=== PATIENT | male | born 1965 | race Caucasian/White ===

== ENCOUNTER 2017-01-11 09:35 | Emergency (ER) | payer MEDICAID, OTHER ==
[~2017-01-11] VITALS: Ht 170.2 cm; Wt 87.5 kg
[2017-01-11 09:45] VITALS: Ht 170.2 cm; Wt 87.5 kg
[2017-01-11 10:54] LABS: ADD SCAN DIFF NO
[2017-01-11 11:00] LABS: BASOPHILS % 0.8 % (0.0-2.0); EOSINOPHILS # 0.1 10^3/ul (0.0-0.5); EOSINOPHILS % 1.6 % (0.0-7.0); HEMATOCRIT 45.6 % (42.0-52.0); HEMOGLOBIN 15.2 g/dl (14.0-18.0); LYMPHOCYTES # 1.3 10^3/ul (0.8-2.9); LYMPHOCYTES % 34.7 % (15.0-51.0); MEAN CORPUSCULAR HEMOGLOBIN 31.6 pg (29.0-33.0); MEAN CORPUSCULAR HGB CONC 33.3 g/dl (32.0-37.0); MEAN CORPUSCULAR VOLUME 94.8 fl (82.0-101.0); MONOCYTE # 0.3 10^3/ul (0.3-0.9); MONOCYTES % 8.7 % (0.0-11.0); NEUTROPHILS % 53.9 % (39.0-77.0); PLATELET COUNT 234 10^3/UL (140-415); RED BLOOD COUNT 4.81 10^6/ul (4.70-6.10); RED CELL DISTRIBUTION WIDTH 13.1 % (11.5-14.5); WHITE BLOOD COUNT 3.8 10^3/ul (4.8-10.8)
--- NOTE | 2017-01-11 11:05 | RADRPT ---
PROCEDURE: US Abdomen (right upper quadrant). CLINICAL INDICATION: Abdominal pain. TECHNIQUE: Multiple real-time longitudinal and transverse images of the right upper quadrant of th e abdomen were acquired utilizing a curved array transducer. Images were reviewed on a high-resoluti on PACS workstation. COMPARISON: None FINDINGS: The liver is size and echotexture without focal mass or intrahepatic biliary dilatation. There is n ormal hepatopedal flow within the main portal vein. The gallbladder is gallbladder demonstrates mul tiple, echogenic shadowing calculi without wall thickening. The common bile duct measures 4.7 mm in maximal dimension. The visualized portions of the pancreas are unremarkable with obscuration of the tail of the pancreas. No free fluid is identified. The right kidney measures 10.4 cm in length. There is normal echogenicity within the right kidney. There is no perinephric fluid collection. No hydronephrosis, mass, or calculus is seen. IMPRESSION: 1. Cholelithiasis without evidence of gallbladder wall thickening or biliary tree dilatation. RPTAT: [facility] Physician Nidia Date Time Electronically viewed and signed by Physician Nidia on 01/11/2017 11:04 SERVANDO/
[2017-01-11 11:23] LABS: ALBUMIN 4.4 g/dl (3.3-4.9); ALBUMIN/GLOBULIN RATIO 1.29; BILIRUBIN,INDIRECT 0.7 mg/dl (0-1.1); BILIRUBIN,TOTAL 0.7 mg/dl (0.2-1.3); CALCIUM 9.5 mg/dl (8.4-10.2); CREATININE 0.82 mg/dl (0.61-1.24); POTASSIUM 4.5 mmol/L (3.5-5.1); TOTAL PROTEIN 7.8 g/dl (6.1-8.1)
[2017-01-11] MEDS ORDERED: AZIT250T94 PO (11:37)
[2017-01-11] MEDS ORDERED: ACET500C5 PO (11:37)
--- NOTE | 2017-01-11 11:43 | ERD ---
ER Documentation Chief Complaint Date/Time DATE: 01/11/17 TIME: 11:[address] X6 WEEKS GETTING WORSE; AND EPIGASTRIC PAIN X2 MONTHS. HX GASTRITIS HPI This 51-year-old male presents with multiple complaints. He states that his sore throat over the last 6 weeks which is getting worse. He has a history of gastritis and over the last few days started Pepcid. He is requesting antibiotics for sore throat. He denies fevers or vomiting. He has a history of gallstones but his pain appears to be primarily epigastric. ROS All systems reviewed and are negative except as per history of present illness. Medications Home Meds Active Scripts Acetaminophen* (Tylophen*) 500 Mg Capsule, 1 CAP PO Q6H Y for PAIN AND OR ELEVATED TEMP, #20 CAP Prov:MARCELA BANUELOS MD 01/11/17 Azithromycin* (Zithromax*) 250 Mg Tablet, 250 MG PO .ZPACK DIRECTED, #6 TAB TAKE 500 MG (2 TABS) THE FIRST DAY THEN 250 MG (1 TAB) DAYS 2-5 Prov:MARCELA BANUELOS MD 01/11/17 Allergies Allergies: Coded Allergies: Penicillins (Verified Allergy, Unknown, 01/11/17) omeprazole (Verified Allergy, Unknown, 01/11/17) PMhx/Soc Medical and Surgical Hx: pt denies Medical Hx History of Surgery: Yes (appendix) Hx Miscellaneous Medical Probl: Yes (gastritis) Hx Alcohol Use: Yes (socially) Hx Substance Use: No Hx Tobacco Use: No Smoking Status: Never smoker Physical Exam Vitals Vital Signs Date Time Temp Pulse Resp B/P Pulse Ox O2 Delivery O2 Flow Rate FiO2 01/11/17 09:45 98.7 78 16 125/72 99 Physical Exam Const: [] Alert, [id number]. Head: Atraumatic Eyes: Normal Conjunctiva ENT: Normal External Ears, Nose and Mouth. Cobblestoning in the posterior oropharynx with tonsils without erythema or exudate. Neck: Full range of motion..~ No meningismus. Resp: Clear to auscultation bilaterally Cardio: Regular rate and rhythm, no murmurs Abd: Soft, minimal epigastric tenderness without tenderness at McBurney's point and no Douglas sign. , non distended. Normal bowel sounds Skin: No petechiae or rashes Back: No midline or flank tenderness Ext: No cyanosis, or edema Neur: Awake and alert Psych: Normal Mood and Affect Result Diagram: 01/11/17 1045 01/11/17 1045 Results 24 hrs Laboratory Tests Test 01/11/17 10:45 White Blood Count 3.810^3/ul Red Blood Count 4.8110^6/ul Hemoglobin 15.2g/dl Hematocrit 45.6% Mean Corpuscular Volume 94.8fl Mean Corpuscular Hemoglobin 31.6pg Mean Corpuscular Hemoglobin Concent 33.3g/dl Red Cell Distribution Width 13.1% Platelet Count 14617^3/UL Mean Platelet Volume 10.0fl Neutrophils % 53.9% Lymphocytes % 34.7% Monocytes % 8.7% Eosinophils % 1.6% Basophils % 0.8% Nucleated Red Blood Cells % 0.0/100WBC Neutrophils # 2.010^3/ul Lymphocytes # 1.310^3/ul Monocytes # 0.310^3/ul Eosinophils # 0.110^3/ul Basophils # 0.010^3/ul Nucleated Red Blood Cells # 0.010^3/ul Sodium Level 138mmol/L Potassium Level 4.5mmol/L Chloride Level 103mmol/L Carbon Dioxide Level 27mmol/L Anion Gap 13 Blood Urea Nitrogen 17mg/dl Creatinine 0.82mg/dl Glucose Level 101mg/dl Calcium Level 9.5mg/dl Total Bilirubin 0.7mg/dl Direct Bilirubin 0.00mg/dl Indirect Bilirubin 0.7mg/dl Aspartate Amino Transf (AST/SGOT) 38IU/L Alanine Aminotransferase (ALT/SGPT) 57IU/L Alkaline Phosphatase 55IU/L Total Protein 7.8g/dl Albumin 4.4g/dl Globulin 3.40g/dl Albumin/Globulin Ratio 1.29 Lipase 33U/L Procedures/MDM CBC and CMP and lipase are normal. Right upper quadrant ultrasound shows gallstones without evidence of obstruction or cholecystitis. Patient has epigastric abdominal pain and sore throat worsening over last week's weeks. Patient was counseled that I believe this sore throat is likely a progression of his GERD.. He apparently has an allergy to omeprazole but should continue Pepcid and diet modification. Patient is insisting on antibiotics and will ultimately be provided with prescription although again counseled the sore throat likely infectious but due to his GERD. He should return for fevers, vomiting, new worsening symptoms of the yang he is referred to his primary doctor for GI evaluation for persistent symptoms despite treatment and general surgery for evaluation of gallstones. The patient was stable with no new complaints during the ER course. Clinically, there is no current evidence to suggest meningitis, sepsis, acute abdomen, pneumonia, acute coronary syndrome, pulmonary embolism, or any other emergent condition appearing to require further evaluation or hospitalization. The patient should certainly return for any new or worsening symptoms per the aftercare instructions. They should otherwise follow-up with her primary care doctor for reevaluation this week. Departure Diagnosis: Primary Impression: Gallstones Additional Impression: Multiple complaints Condition: Stable Patient Instructions: Self-Care for Sore Throats, Gallstones, Gerd (Adult) Referrals: [facility] () Janet se bhat hecho un examen mdico de control que le indica que no est en geovanna condicin que requiera tratamiento urgente en el Departamento de Emergencia. Un estudio ms profundo y el tratamiento de coronel condicin pueden esperar sin ningn riesgo hasta que usted sea atendida/o en el consultorio de coronel mdico o geovanna cl nadia. Es responsabilidad suya arreglar geovanna arturo para el seguimiento del williams. MANEJO DE CONDICIONES NO URGENTES EN EL FUTURO 1) Si usted tiene un mdico de atencin primaria: cassidy debera llamar a coronel mdico de atencin primaria antes de venir al departamento de emergencia. Despus de las horas de consultorio, coronel doctor o coronel asociado/a est disponible por telfono. El mdico o enfermero de acacia en el servicio telefnico puede asesorarle por lencho medio para atender el problema, o williams contrario se puede programar geovanna arturo. 2) Si usted no tiene un mdico de atencin primaria: Llame al mdico o clnica de referencia que aparece abajo leona las horas de consultorio para hacer geovanna arturo para que le vean. CLINICAS: [facility] [phone] [facility] [phone] [facility] [phone] [facility] [phone] [place] [phone] [id number] [facility] [phone] [address] Additional Instructions: JENNI NORMAL. TIENE PIEDRAS EN VESICULA. RECOMIENDO UN CIRUJANO PARA MAS EVALUACON. RECOMIENDO ESPECIALISTA DE ESTOMAGO PARA MAS SIMPTOMAS. VAMOA A TRATAR PARA INFECCION EN [place] NO CREO ES INFECTION. MARCELA BANUELOS MD Jan 11, 2017 11:43
== END 2017-01-11 12:13 | disposition home or self-care (01) ==
LOC: FTE 09:35
DX: K80.20 Calculus of gallbladder without cholecystitis without obstruction (principal); J02.9 Acute pharyngitis, unspecified
CPT/HCPCS: 36415; 76705; 80053; 83690; 85025; Z7502

== ENCOUNTER 2017-09-26 08:46 | Emergency (ER) | payer SELFPAY ==
[~2017-09-26] VITALS: Ht 167.6 cm; Wt 85.6 kg
[~2017-09-26 08:46] MED LIST: ACET500C5 PO; AZIT250T94 PO
[2017-09-26 08:52] VITALS: Ht 167.6 cm; Wt 85.6 kg
[2017-09-26] MEDS ORDERED: ONDANSETRON 4 MG INJ IV STA (09:16)
[2017-09-26] MEDS ORDERED: LIDOCAINE/MYLANTA 40 ML BTL PO STA (09:16)
[2017-09-26] MEDS ORDERED: morphine 4 MG/ML VIAL IV STA (09:16)
[2017-09-26] MEDS ORDERED: FAMOTIDINE 20 MG INJ IV STA (09:16)
--- NOTE | 2017-09-26 09:24 | ERD ---
ER Documentation Chief Complaint Chief Complaint AP HX OF GASTRITIS HPI This 52-year-old male with a history of gastritis and reflux who states she is having some epigastric left upper quadrant pain onset the past 2 months. He states that it got worse last night and this morning complains of burning pain in the epigastric left upper quadrant region with some heartburn sensation with a foul taste in his mouth. He says he had the same symptoms for several months but is seems to be worse today. No chest pain or shortness of breath no fever no diarrhea no vomiting ROS All systems reviewed and are negative except as per history of present illness. Medications Home Meds Active Scripts Lidocaine (Lidocaine Viscous) 100 Ml Soln, 15 ML MM BEFORE MEALS, #200 Prov:BARBARA DIXON DO 09/26/17 Dicyclomine Hcl* (Bentyl*) 10 Mg Capsule, 20 MG PO QID, #30 CAP Prov:BARBARA DIXON DO 09/26/17 Hydrocodone/Acetaminophen ([place] 10-325 Tablet) 1 Each Tablet, 1 TAB PO Q6H Y for PAIN, #20 TAB Prov:BARBRAA DIXON DO 09/26/17 Azithromycin* (Zithromax*) 250 Mg Tablet, 250 MG PO .ZPACK DIRECTED, #6 TAB TAKE 500 MG (2 TABS) THE FIRST DAY THEN 250 MG (1 TAB) DAYS 2-5 Prov:MARCELA BANUELOS MD 01/11/17 Reported Medications Albuterol Sulfate* (Ventolin HFA*) 18 Gm Hfa.aer.ad, 2 PUFF INHALATION Q6H, #1 INHALER 09/26/17 Cimetidine (Tagamet HB) 200 Mg Tablet, 400 MG PO TID, TAB 09/26/17 Fluconazole* (Fluconazole*) 150 Mg Tablet, 150 MG PO DAILY for 7 Days, TAB 09/26/17 Discontinued Scripts Acetaminophen* (Tylophen*) 500 Mg Capsule, 1 CAP PO Q6H Y for PAIN AND OR ELEVATED TEMP, #20 CAP Prov:MARCELA BANUELOS MD 01/11/17 Allergies Allergies: Coded Allergies: Penicillins (Verified Allergy, Unknown, 09/26/17) omeprazole (Verified Allergy, Unknown, 09/26/17) PMhx/Soc History of Surgery: Yes (appendix) Hx Miscellaneous Medical Probl: Yes (gastritis) Hx Alcohol Use: Yes (socially) Hx Substance Use: No Hx Tobacco Use: No FmHx Family History: No coronary disease Physical Exam Vitals Vital Signs Date Time Temp Pulse Resp B/P Pulse Ox O2 Delivery O2 Flow Rate FiO2 09/26/17 08:52 98.0 92 18 125/88 96 Physical Exam Const: Well-developed, well-nourished Head: Atraumatic, normocephalic Eyes: Normal Conjunctiva, PERRLA, EOMI, normal sclera, no nystagmus ENT: Normal External Ears, Nose and Mouth, moist mucus membranes. Neck: Full range of motion. No meningismus, no lymphadenopathy. Resp: Clear to auscultation bilaterally, no wheezing, rhonchi, rales Cardio: Regular rate and rhythm, no murmurs, S1 S2 present Abd: Soft, mild epigastric and left upper quadrant tenderness non distended. Normal bowel sounds, no guarding or rebound, no pulsitile abdominal masses or bruits Skin: No petechiae or rashes, no ecchymosis , no maculopapular rash Back: No midline or flank tenderness Ext: No cyanosis, or edema, FROM x 4, normal inspection, neurovascularly intact x 4 Neur: Awake and alert, STR 5/5 x 4, sensation intact x 4, no focal findings, cerebellum intact Psych: Normal Mood and Affect Result Diagram: 09/26/17 0900 09/26/17 0900 Results 24 hrs Laboratory Tests Test 09/26/17 09:00 White Blood Count 6.610^3/ul Red Blood Count 4.9610^6/ul Hemoglobin 15.3g/dl Hematocrit 45.0% Mean Corpuscular Volume 90.7fl Mean Corpuscular Hemoglobin 30.8pg Mean Corpuscular Hemoglobin Concent 34.0g/dl Red Cell Distribution Width 13.0% Platelet Count 76178^3/UL Mean Platelet Volume 10.0fl Neutrophils % 56.2% Lymphocytes % 33.0% Monocytes % 8.8% Eosinophils % 1.1% Basophils % 0.3% Nucleated Red Blood Cells % 0.0/100WBC Neutrophils # 3.710^3/ul Lymphocytes # 2.210^3/ul Monocytes # 0.610^3/ul Eosinophils # 0.110^3/ul Basophils # 0.010^3/ul Nucleated Red Blood Cells # 0.010^3/ul Sodium Level 142mmol/L Potassium Level 4.7mmol/L Chloride Level 103mmol/L Carbon Dioxide Level 28mmol/L Anion Gap 16 Blood Urea Nitrogen 13mg/dl Creatinine 1.00mg/dl Glucose Level 86mg/dl Calcium Level 10.3mg/dl Total Bilirubin 0.7mg/dl Direct Bilirubin 0.00mg/dl Indirect Bilirubin 0.7mg/dl Aspartate Amino Transf (AST/SGOT) 27IU/L Alanine Aminotransferase (ALT/SGPT) 51IU/L Alkaline Phosphatase 53IU/L Troponin I < 0.012ng/ml Total Protein 7.8g/dl Albumin 4.4g/dl Globulin 3.40g/dl Albumin/Globulin Ratio 1.29 Lipase 76U/L Current Medications Medications (Trade) Dose Ordered Sig/Marquez Route PRN Reason Start Time Stop Time Status Last Admin Dose Admin Morphine Sulfate (morphine) 4 mg ONCE STAT IV 09/26/17 09:16 09/26/17 09:18 DC 09/26/17 09:30 Ondansetron HCl (Zofran Inj) 4 mg ONCE STAT IV 09/26/17 09:16 09/26/17 09:18 DC 09/26/17 09:30 Famotidine (Pepcid Iv) 20 mg ONCE STAT IV 09/26/17 09:16 09/26/17 09:18 DC 09/26/17 09:30 Miscellaneous Medication 40 ml 40 ml ONCE STAT PO 09/26/17 09:16 09/26/17 09:18 DC 09/26/17 09:30 Sodium Chloride (NS) 100 ml @ ud STK-MED ONCE .ROUTE 09/26/17 10:21 09/26/17 10:22 DC 09/26/17 10:55 Iohexol (Omnipaque 300mg/ ml) 150 ml STK-MED ONCE .ROUTE 09/26/17 10:21 09/26/17 10:22 DC 09/26/17 10:55 Procedures/MDM PROCEDURE: CT scan of the abdomen and pelvis with IV contrast. CLINICAL INDICATION: Abdominal pain. TECHNIQUE: Thin section axial, coronal and sagittal images were performed through the abdomen and pelvis following uncomplicated intravenous administration of 100 ccs of knee pain 300 intravenous contrast. Images were performed on a Light[employer] V[employer] scanner. Radiation Dose: CTDI: 13.24 and DLP: 830. DICOM images are available. One or more of the following dose reduction techniques were used: Automated exposure control. Adjustment of the mA and/or kV according to patient size. Use of iterative reconstruction technique. COMPARISON: Abdominal sonogram 01/11/2017. FINDINGS: Soft tissues: There are small bilateral inguinal hernias containing only fat. There is rectus diastasis. Lungs and pleural spaces: There is compressive atelectasis in the right and left lower lobes. No pericardial effusion is identified. No pulmonary nodule is noted. Heart: There is a small epicardial fat pad adjacent to the lower left heart border. The liver, common bile duct and gallbladder: There are small gallstones in the gallbladder without evidence of gallbladder wall thickening. The hepatic and portal veins are patent. The liver is normal in size. No hepatic mass is identified. Gastrointestinal: There is no evidence of a hiatal hernia. Gastric wall thickening is attributed to incomplete distension. The small bowel loops have a normal caliber. There is diastasis rectus. There is fecal material in the cecum and ascending colon. There is suture material in the distal cecum likely related to a prior cholecystectomy. The appendix is not visualized. No free fluid is noted in the peritoneal cavity. There are small inguinal hernias containing fat. Pancreas: Normal. The tail of the pancreas is prominent as a projects dorsal to the splenic pain. This is likely normal. Kidneys, bladder and adrenal glands : Normal. Spleen: There are calcifications in the spleen which are likely result of granulomas. Lymph nodes: Normal. There are small inguinal lymph nodes. Reproductive system and pelvis : The prostate gland and seminal vesicles are normal. No free fluid is present in the pelvis. Bony elements: There are degenerative changes of the lumbar spine. There are small osteophytes in the lower thoracic spine. There is disc space narrowing at L5-S1. No acute bony fracture or bone metastasis is noted. Vasculature: Normal. IMPRESSION: 1. Cholelithiasis. 2. Calcified granulomas in the spleen. 3. Ground-glass and plate-like areas of atelectasis in the bases of the lungs. 4. Rounded prominence involving the tail of the pancreas which is likely normal. Follow-up imaging can be considered. 5. Diastasis rectus. 6. Status post appendectomy. 7. Small bilateral inguinal hernias. RPTAT:AAJJ Todd Munoz Physician Date Time Electronically viewed and signed by Todd Munoz Physician on 09/26/2017 11:33 JM/ CC: BARBARA DIXON DO Patient says GI cocktail made her feel much better.. Patient has gallstones he did not know about. The patient's clinical symptoms are more consistent with his gastritis and reflux he has had in the past. Patient is on ranitidine and Tagamet as he is allergic to PPI. Patient feels better I will discharge him with Bentyl [place] and viscous lidocaine. Also reviewed home diet. Departure Diagnosis: Primary Impression: Gastritis Gastritis type: unspecified gastritis Chronicity: unspecified Gastritis bleeding: without bleeding Qualified Code: K29.70 - Gastritis without bleeding, unspecified chronicity, unspecified gastritis type Additional Impression: Gallstones Condition: Stable BARBARA DIXON DO Sep 26, 2017 09:24
[2017-09-26 09:37] LABS: BASOPHILS % 0.3 % (0.0-2.0); EOSINOPHILS # 0.1 10^3/ul (0.0-0.5); EOSINOPHILS % 1.1 % (0.0-7.0); HEMOGLOBIN 15.3 g/dl (14.0-18.0); LYMPHOCYTES # 2.2 10^3/ul (0.8-2.9); MEAN CORPUSCULAR HEMOGLOBIN 30.8 pg (29.0-33.0); MEAN CORPUSCULAR VOLUME 90.7 fl (82.0-101.0); MONOCYTE # 0.6 10^3/ul (0.3-0.9); MONOCYTES % 8.8 % (0.0-11.0); NEUTROPHIL # 3.7 10^3/ul (1.6-7.5); NEUTROPHILS % 56.2 % (39.0-77.0); PLATELET COUNT 241 10^3/UL (140-415); RED BLOOD COUNT 4.96 10^6/ul (4.70-6.10); WHITE BLOOD COUNT 6.6 10^3/ul (4.8-10.8)
[2017-09-26 10:07] LABS: ALBUMIN 4.4 g/dl (3.3-4.9); ALBUMIN/GLOBULIN RATIO 1.29; BILIRUBIN,INDIRECT 0.7 mg/dl (0-1.1); BILIRUBIN,TOTAL 0.7 mg/dl (0.2-1.3); CALCIUM 10.3 mg/dl (8.4-10.2); POTASSIUM 4.7 mmol/L (3.5-5.1); TOTAL PROTEIN 7.8 g/dl (6.1-8.1)
[2017-09-26] MEDS ORDERED: SOD CHLORIDE 0.9% 100 ML ONE (10:21)
[2017-09-26] MEDS ORDERED: IOHEXOL 300MG/ML 150 ML BTL ONE (10:21)
[2017-09-26] MEDS ORDERED: FLUC150T41 PO (11:08)
[2017-09-26] MEDS ORDERED: ALBU18HF INHALATION (11:09)
[2017-09-26] MEDS ORDERED: [UNRECOGNIZED DRUG - CODE] PO (11:09)
--- NOTE | 2017-09-26 11:33 | RADRPT ---
PROCEDURE: CT scan of the abdomen and pelvis with IV contrast. CLINICAL INDICATION: Abdominal pain. TECHNIQUE: Thin section axial, coronal and sagittal images were performed through the abdomen and pelvis following uncomplicated intravenous administration of 100 ccs of knee pain 300 intravenous co ntrast. Images were performed on a [employer] V[employer] scanner. Radiation Dose: CTDI: 13.24 and DLP: 830. DICOM images are available. One or more of the following dose reduction techniques were used: Automated exposure control. Adjustment of the mA and/or kV according to patient size. Use of iterative reconstruction technique. COMPARISON: Abdominal sonogram 01/11/2017. FINDINGS: Soft tissues: There are small bilateral inguinal hernias containing only fat. There is rectus diasta sis. Lungs and pleural spaces: There is compressive atelectasis in the right and left lower lobes. No per icardial effusion is identified. No pulmonary nodule is noted. Heart: There is a small epicardial fat pad adjacent to the lower left heart border. The liver, common bile duct and gallbladder: There are small gallstones in the gallbladder without e vidence of gallbladder wall thickening. The hepatic and portal veins are patent. The liver is normal in size. No hepatic mass is identified. Gastrointestinal: There is no evidence of a hiatal hernia. Gastric wall thickening is attributed to incomplete distension. The small bowel loops have a normal caliber. There is diastasis rectus. There is fecal material in the cecum and ascending colon. There is suture material in the distal cecum li annemarie related to a prior cholecystectomy. The appendix is not visualized. No free fluid is noted in t he peritoneal cavity. There are small inguinal hernias containing fat. Pancreas: Normal. The tail of the pancreas is prominent as a projects dorsal to the splenic pain. Th is is likely normal. Kidneys, bladder and adrenal glands : Normal. Spleen: There are calcifications in the spleen which are likely result of granulomas. Lymph nodes: Normal. There are small inguinal lymph nodes. Reproductive system and pelvis : The prostate gland and seminal vesicles are normal. No free fluid i s present in the pelvis. Bony elements: There are degenerative changes of the lumbar spine. There are small osteophytes in th e lower thoracic spine. There is disc space narrowing at L5-S1. No acute bony fracture or bone metas tasis is noted. Vasculature: Normal. IMPRESSION: 1. Cholelithiasis. 2. Calcified granulomas in the spleen. 3. Ground-glass and plate-like areas of atelectasis in the bases of the lungs. 4. Rounded prominence involving the tail of the pancreas which is likely normal. Follow-up imaging c an be considered. 5. Diastasis rectus. 6. Status post appendectomy. 7. Small bilateral inguinal hernias. RPTAT:AAJJ Physician Eula Date Time Electronically viewed and signed by Todd Munoz Physician on 09/26/2017 11:33 KRISHNA/
[2017-09-26] MEDS ORDERED: HYDR-902 PO (11:58)
[2017-09-26] MEDS ORDERED: LIDO20SO19 MM (11:58)
[2017-09-26] MEDS ORDERED: DICY10CA60 PO (11:58)
== END 2017-09-26 17:00 | disposition home or self-care (01) ==
LOC: E/R 08:46
DX: K29.70 Gastritis, unspecified, without bleeding (principal); K80.20 Calculus of gallbladder without cholecystitis without obstruction
CPT/HCPCS: 36415; 74177; 80053; 83690; 84484; 85025; 96374; 96375; 99285; J2270; Q9967; 93005